=== PATIENT | female | born 1970 | race Caucasian/White ===

== ENCOUNTER 2018-06-05 10:38 | Emergency (ER) | payer MEDICAID ==
[~2018-06-05] VITALS: Ht 167.6 cm; Wt 87.0 kg
[2018-06-05 13:33] LABS: CLARITY URINE CLEAR (CLEAR); COLOR URINE RED (YELLOW); KETONES URINE NEGATIVE (NEGATIVE); LEUKOCYTE ESTERASE URINE NEGATIVE (NEGATIVE); NITRITE URINE NEGATIVE (NEGATIVE); OCCULT BLOOD URINE 3+ (NEGATIVE); PROTEIN URINE NEGATIVE (NEGATIVE); SPECIFIC GRAVITY URINE 1.018 (1.005-1.030)
[2018-06-05 14:07] LABS: BASOPHILS % 0.9 % (0.0-2.0); EOSINOPHILS % 3.8 % (0.0-5.0); HEMATOCRIT. 39.6 % (36.0-48.0); HEMOGLOBIN. 13.5 g/dL (12.0-16.0); LYMPHOCYTES % 33.9 % (20.0-50.0); MEAN CORPUSCULAR HEMOGLOBIN 32.7 pg (28.0-32.0); MEAN CORPUSCULAR VOLUME 96.1 fL (81.0-99.0); MEAN PLATELET VOLUME 9.1 fl (7.4-10.4); MONOCYTES % 6.6 % (2.0-8.0); NEUTROPHILS % 54.8 % (40.0-76.0); PLATELET 260 x1000/uL (130-400); RED BLOOD CELL COUNT 4.12 mill/uL (4.2-5.4)
[2018-06-05 14:14] LABS: CHLORIDE 111 mEq/L (98-107)
[2018-06-05 14:23] LABS: B-HCG QUANTITATIVE < 1 mIU/mL (<3)
[2018-06-05 17:05] VITALS: BP 117/84
== END 2018-06-05 17:06 | disposition home or self-care (01) ==
LOC: ER 10:38
DX: D25.9 Leiomyoma of uterus, unspecified (principal); N93.9 Abnormal uterine and vaginal bleeding, unspecified; I10 Essential (primary) hypertension; Z88.5 Allergy status to narcotic agent
CPT/HCPCS: 36415; 76830; 76856; 81025; 84702; 86850; 86900; 99284

== ENCOUNTER 2018-07-17 08:12 | Emergency (ER) | payer MEDICAID ==
[~2018-07-17] VITALS: Ht 167.6 cm; Wt 93.0 kg
[2018-07-17 10:11] LABS: BASOPHILS % 0.7 % (0.0-2.0); EOSINOPHILS % 4.1 % (0.0-5.0); HEMOGLOBIN. 12.1 g/dL (12.0-16.0); LYMPHOCYTES % 32.9 % (20.0-50.0); MEAN CORPUSCULAR HEMOGLOBIN 32.2 pg (28.0-32.0); MEAN CORPUSCULAR VOLUME 95.8 fL (81.0-99.0); MEAN PLATELET VOLUME 9.4 fl (7.4-10.4); MONOCYTES % 7.1 % (2.0-8.0); NEUTROPHILS % 55.2 % (40.0-76.0); PLATELET 242 x1000/uL (130-400); RED BLOOD CELL COUNT 3.76 mill/uL (4.2-5.4); RED CELL DISTRIBUTION WIDTH 13.1 % (11.6-14.6)
[2018-07-17 10:22] LABS: CHLORIDE 111 mEq/L (98-107)
[2018-07-17 10:32] LABS: B-HCG QUANTITATIVE < 1 mIU/mL (<3)
[2018-07-17 10:42] VITALS: BP 135/85
== END 2018-07-17 10:59 | disposition home or self-care (01) ==
LOC: ER 08:12
DX: N93.8 Other specified abnormal uterine and vaginal bleeding (principal)
CPT/HCPCS: 36415; 80053; 81025; 84702; 85025; 86850; 86900; 86901; 99283; Z7610

== ENCOUNTER 2019-07-25 13:01 | Emergency (ER) | payer MEDICAID ==
[~2019-07-25] VITALS: Ht 165.1 cm; Wt 90.0 kg
[2019-07-25 13:04] VITALS: BP 144/84
[2019-07-25] MEDS ORDERED: IBUPROFEN 600MG TABLET PO ONE (13:30)
== END 2019-07-25 15:29 | disposition home or self-care (01) ==
LOC: ER 13:01
DX: M25.561 Pain in right knee (principal); Z91.81 History of falling
CPT/HCPCS: 73562; 99283

== ENCOUNTER 2019-08-02 16:05 | Emergency (ER) | payer MEDICAID ==
[~2019-08-02] VITALS: Ht 165.1 cm; Wt 80.0 kg
[2019-08-02] MEDS ORDERED: KETOROLAC 60MG/2ML VIAL IM ONE (20:30)
[2019-08-02 20:43] VITALS: BP 133/61
== END 2019-08-02 20:45 | disposition home or self-care (01) ==
LOC: ER 16:05
DX: S80.01XA Contusion of right knee, initial encounter (principal); W01.0XXA Fall on same level from slipping, tripping and stumbling without subsequent striking against object, initial encounter; Y93.89 Activity, other specified; Y92.89 Other specified places as the place of occurrence of the external cause
CPT/HCPCS: 96372; 99283; J1885

== ENCOUNTER 2021-10-12 17:35 | Emergency (ER) | payer MEDICAID, OTHER ==
[~2021-10-12] VITALS: Ht 170.2 cm; Wt 85.0 kg
[~2021-10-12 17:35] MED LIST: ACET-2708 MT; IBUP-2029 MT
[2021-10-12] MEDS ORDERED: ONDANSETRON HCL 4MG/2ML INJ IV STA (18:21)
[2021-10-12 18:26] LABS: BASOPHILS % 0.9 % (0.0-2.0); EOSINOPHILS % 2.9 % (0.0-5.0); HEMATOCRIT. 41.7 % (36.0-48.0); HEMOGLOBIN. 13.8 g/dL (12.0-16.0); LYMPHOCYTES % 28.4 % (20.0-50.0); MEAN CORPUSCULAR HEMOGLOBIN 31.7 pg (28.0-32.0); MEAN CORPUSCULAR VOLUME 95.9 fL (81.0-99.0); MONOCYTES % 8.3 % (2.0-8.0); NEUTROPHILS % 59.5 % (40.0-76.0); PLATELET 279 x1000/uL (130-400); RED BLOOD CELL COUNT 4.35 mill/uL (4.2-5.4); RED CELL DISTRIBUTION WIDTH 13.1 % (11.6-14.6)
[2021-10-12 18:30] LABS: CHLORIDE 109 mEq/L (98-107)
[2021-10-12] MEDS ORDERED: FAMOTIDINE 20MG/2ML VIAL IV ONE (18:30)
[2021-10-12] MEDS ORDERED: KETOROLAC 30MG/ML VIAL IV ONE (18:30)
[2021-10-12] MEDS ORDERED: SODIUM CHLORIDE 0.9% 1,000 ML IV ONE (18:30)
[2021-10-12 18:39] LABS: ETHANOL BLOOD < 10 mg/dL
[2021-10-12 18:54] LABS: HCG SCREEN NEGATIVE
[2021-10-12 18:55] LABS: CLARITY URINE CLOUDY (CLEAR); COLOR URINE DARK YELLOW (YELLOW); KETONES URINE TRACE (NEGATIVE); LEUKOCYTE ESTERASE URINE NEGATIVE (NEGATIVE); NITRITE URINE NEGATIVE (NEGATIVE); OCCULT BLOOD URINE 3+ (NEGATIVE); PROTEIN URINE 1+ (NEGATIVE); SPECIFIC GRAVITY URINE 1.039 (1.005-1.030)
[2021-10-12] MEDS ORDERED: MIDAZOLAM HCL 2 MG/2 ML VIAL IV ONE (19:00)
[2021-10-12 19:07] LABS: *AMPHETAMINES SCREEN URINE NEGATIVE (NEGATIVE); *BARBITURATES SCREEN URINE NEGATIVE (NEGATIVE); *BENZODIAZEPINES SCREEN URINE NEGATIVE (NEGATIVE); *COCAINE SCREEN URINE NEGATIVE (NEGATIVE); CANNABINOID URINE SCREEN NEGATIVE (NEGATIVE); METHADONE URINE SCREEN NEGATIVE (NEGATIVE); OPIATES URINE SCREEN NEGATIVE (NEGATIVE); PHENCYCLIDINE URINE SCREEN NEGATIVE (NEGATIVE)
[2021-10-12 20:00] VITALS: BP 119/57
[2021-10-12] MEDS ORDERED: DICY10CA88 MT (20:46)
[2021-10-12] MEDS ORDERED: POLY119P2 MT (20:46)
[2021-10-12] MEDS ORDERED: ONDA4TAB11 PO (20:46)
[2021-10-12] MEDS ORDERED: OMEP20CA14 MT (20:46)
== END 2021-10-12 21:07 | disposition home or self-care (01) ==
LOC: ER 17:35
DX: R10.30 Lower abdominal pain, unspecified (principal); K59.00 Constipation, unspecified; R11.10 Vomiting, unspecified
CPT/HCPCS: 36415; 74176; 80053; 80305; 80320; 81003; 81025; 83690; 84703; 85025; 96361; 96374; 96375; 99284; J1885; J2250; J2405; J3490; J7030; G0480

== ENCOUNTER 2021-10-15 16:13 | Inpatient (IN) | payer OTHER ==
[~2021-10-15] VITALS: Ht 165.1 cm; Wt 45.2 kg
[~2021-10-15 16:13] MED LIST changes: +DICY10CA88 MT; +OMEP20CA14 MT; +ONDA4TAB11 PO; +POLY119P2 MT
[2021-10-15] MEDS ORDERED: ONDANSETRON 4MG ODT PO STA (20:51)
[2021-10-15] MEDS ORDERED: HYDROCODONE/ACETAMINOPHEN 5/325MG TABLET PO STA (20:51)
[2021-10-15] MEDS ORDERED: IBUPROFEN 600MG TABLET PO STA (20:51)
[2021-10-15 22:08] LABS: HCG SCREEN NEGATIVE
[2021-10-15 22:09] LABS: CHLORIDE 110 mEq/L (98-107)
[2021-10-15] MEDS ORDERED: HYDROCODONE/ACETAMINOPHEN 5/325MG TABLET PO NR (22:39)
[2021-10-15] MEDS ORDERED: MAGNESIUM/ALUMINUM HYDROXIDE/SIMETHICONE 30ML UDC PO NR (22:39)
[2021-10-15 22:44] LABS: CLARITY URINE CLEAR (CLEAR); COLOR URINE YELLOW (YELLOW); KETONES URINE 2+ (NEGATIVE); LEUKOCYTE ESTERASE URINE NEGATIVE (NEGATIVE); NITRITE URINE NEGATIVE (NEGATIVE); OCCULT BLOOD URINE 2+ (NEGATIVE); PH URINE 5.5 (4.5-8.0); PROTEIN URINE TRACE (NEGATIVE); SPECIFIC GRAVITY URINE 1.016 (1.005-1.030)
[2021-10-15 22:48] LABS: BASOPHILS % 0.3 % (0.0-2.0); HEMATOCRIT. 40.4 % (36.0-48.0); HEMOGLOBIN. 13.2 g/dL (12.0-16.0); LYMPHOCYTES % 11.2 % (20.0-50.0); MEAN CORPUSCULAR HEMOGLOBIN 31.8 pg (28.0-32.0); MEAN CORPUSCULAR VOLUME 96.7 fL (81.0-99.0); MEAN PLATELET VOLUME 9.8 fl (7.4-10.4); MONOCYTES % 4.2 % (2.0-8.0); NEUTROPHILS % 84.3 % (40.0-76.0); PLATELET 252 x1000/uL (130-400); RED BLOOD CELL COUNT 4.17 mill/uL (4.2-5.4); RED CELL DISTRIBUTION WIDTH 12.8 % (11.6-14.6)
[2021-10-16] VITALS: BP 121/64
[2021-10-16] MEDS ORDERED: CEFTRIAXONE 1 G PREMIX 50 ML IV ONE (03:15)
[2021-10-16] MEDS ORDERED: CEFTRIAXONE 1 G PREMIX 50 ML IV NR (05:15)
[2021-10-16 14:28] VITALS: BP 120/74
[2021-10-16] MEDS ORDERED: CEFTRIAXONE 1 G PREMIX 50 ML IV SCH (15:30)
[2021-10-16] MEDS ORDERED: ONDANSETRON HCL 4MG/2ML INJ IV PRN (15:30)
[2021-10-16] MEDS ORDERED: KETOROLAC 30MG/ML VIAL IV PRN (15:30)
[2021-10-16 16:00] VITALS: BP 120/74
[2021-10-16 20:08] VITALS: BP 121/68
[2021-10-17] VITALS (7 sets, daily range): BP systolic 102–125; BP diastolic 50–68
[2021-10-17] MEDS: ACETAMINOPHEN 325MG TABLET PO PRN ×3 (01:42→22:45)
[2021-10-17] MEDS: CEFTRIAXONE 1,000 MG in DEXTROSE 5% WATER 50 ML IV SCH (05:43)
[2021-10-17] MEDS: TAMSULOSIN HCL 0.4MG SR CAPSULE PO SCH (08:18)
[2021-10-18 04:00] VITALS: BP 122/64
[2021-10-18] MEDS: CEFTRIAXONE 1,000 MG in DEXTROSE 5% WATER 50 ML IV SCH (06:14)
[2021-10-18 06:37] LABS: BASOPHILS % 0.7 % (0.0-2.0); EOSINOPHILS % 3.6 % (0.0-5.0); HEMATOCRIT. 39.1 % (36.0-48.0); LYMPHOCYTES % 47.8 % (20.0-50.0); MEAN CORPUSCULAR HEMOGLOBIN 32.2 pg (28.0-32.0); MEAN CORPUSCULAR VOLUME 96.8 fL (81.0-99.0); MEAN PLATELET VOLUME 9.9 fl (7.4-10.4); MONOCYTES % 8.1 % (2.0-8.0); NEUTROPHILS % 39.8 % (40.0-76.0); PLATELET 219 x1000/uL (130-400); RED BLOOD CELL COUNT 4.04 mill/uL (4.2-5.4); RED CELL DISTRIBUTION WIDTH 12.8 % (11.6-14.6)
[2021-10-18 07:07] LABS: CHLORIDE 108 mEq/L (98-107)
[2021-10-18 08:00] VITALS: BP 113/45
[2021-10-18] MEDS: TAMSULOSIN HCL 0.4MG SR CAPSULE PO SCH (08:24)
[2021-10-18 12:00] VITALS: BP 149/76
[2021-10-18] MEDS ORDERED: TAMS-11 PO (12:14)
[2021-10-18] MEDS ORDERED: IBUP-2030 MT (12:14)
[2021-10-18 12:52] VITALS: BP 149/67
== END 2021-10-18 13:25 | disposition home or self-care (01) | DRG 465 ==
LOC: ER 16:13 → 4WST 10-16 04:47
PROVIDERS: ADMIT Internal Medicine; ATTEND Internal Medicine
DX: N20.1 Calculus of ureter (principal); E87.8 Other disorders of electrolyte and fluid balance, not elsewhere classified; E66.9 Obesity, unspecified; K57.90 Diverticulosis of intestine, part unspecified, without perforation or abscess without bleeding; Z90.710 Acquired absence of both cervix and uterus; Z88.8 Allergy status to other drugs, medicaments and biological substances; Z79.899 Other long term (current) drug therapy; Z90.49 Acquired absence of other specified parts of digestive tract; Z68.1 Body mass index [BMI] 19.9 or less, adult
CPT/HCPCS: 36415; 74176; 76830; 76856; 80048; 80053; 81003; 84703; 85025; 99285; J0696; J2405; J7060; Q0162

== ENCOUNTER 2022-11-16 19:58 | Emergency (ER) | payer MEDICAID, OTHER ==
[~2022-11-16] VITALS: Ht 165.1 cm; Wt 87.0 kg
[~2022-11-16 19:58] MED LIST changes: -ACET-2708 MT; -DICY10CA88 MT; -IBUP-2029 MT; +IBUP-2030 MT; -OMEP20CA14 MT; -ONDA4TAB11 PO; -POLY119P2 MT; +TAMS-11 PO
[2022-11-16 20:33] VITALS: O2SAT 97
[2022-11-16 21:01] LABS: CLARITY URINE CLEAR (CLEAR); COLOR URINE YELLOW (YELLOW); GLUCOSE URINE NEGATIVE (NEGATIVE); KETONES URINE 1+ (NEGATIVE); LEUKOCYTE ESTERASE URINE NEGATIVE (NEGATIVE); NITRITE URINE NEGATIVE (NEGATIVE); OCCULT BLOOD URINE NEGATIVE (NEGATIVE); PROTEIN URINE NEGATIVE (NEGATIVE)
[2022-11-16 21:30] LABS: CHLORIDE 108 mEq/L (98-107); INDEX HEMOLYSI 1 (1-3); INDEX ICTERIC 1 (1-4); INDEX LIPEMIC 1 (1-3); POTASSIUM 4.1 mEq/L (3.5-5.1); SODIUM 136 mEq/L (136-145)
[2022-11-16 21:31] LABS: BASOPHILS % 0.9 % (0.0-2.0); EOSINOPHILS % 2.6 % (0.0-5.0); HEMATOCRIT. 41.3 % (36.0-48.0); HEMOGLOBIN. 13.8 g/dL (12.0-16.0); LYMPHOCYTES % 34.2 % (20.0-50.0); MEAN CORPUSCULAR HGB CONC 33.4 g/dL (31.0-37.0); MEAN CORPUSCULAR VOLUME 95.8 fL (81.0-99.0); MEAN PLATELET VOLUME 9.6 fl (7.4-10.4); MONOCYTES % 4.9 % (2.0-8.0); NEUTROPHILS % 57.4 % (40.0-76.0); PLATELET 243 x1000/uL (130-400); RED BLOOD CELL COUNT 4.31 mill/uL (4.2-5.4); RED CELL DISTRIBUTION WIDTH 12.8 % (11.6-14.6); WHITE BLOOD COUNT 8.1 x1000/uL (4.5-11.0)
[2022-11-16 21:37] LABS: ALANINE AMINOTRANSFERASE 35 IU/L (13-61); ALBUMIN 4.1 g/dL (3.4-5.0); ASPARTATE AMINOTRANSFERASE 22 IU/L (15-37); BILIRUBIN TOTAL 0.4 mg/dL (0.1-1.0); CALCIUM 8.8 mg/dL (8.5-10.1); CARBON DIOXIDE 24 mEq/L (21-32); CREATININE 0.8 mg/dL (0.6-1.3); GLUCOSE 107 mg/dL (70-105); PROTEIN TOTAL 7.8 g/dL (6.0-8.3); UREA NITROGEN BLOOD 17 mg/dL (7-21)
[2022-11-16] MEDS ORDERED: KETOROLAC 30MG/ML VIAL IM ONE (22:00)
[2022-11-16] MEDS ORDERED: KETOROLAC 30MG/ML VIAL IM NR (23:45)
[2022-11-17] MEDS ORDERED: HYDROCODONE/ACETAMINOPHEN 5/325MG TABLET PO ONE (00:45)
[2022-11-17 01:54] VITALS: BP 137/50
[2022-11-17 03:08] VITALS: PULSE 99; RESP 18; TEMP 98.2
== END 2022-11-17 03:11 | disposition home or self-care (01) ==
LOC: ER 19:58
DX: R10.9 Unspecified abdominal pain (principal); Z87.19 Personal history of other diseases of the digestive system; Z90.710 Acquired absence of both cervix and uterus; Z90.49 Acquired absence of other specified parts of digestive tract
CPT/HCPCS: 99285; 74176; 80053; 81003; 81025; 85025; 36415; 96372; J1885